=== PATIENT | female | born 1960 | race African-American/Black ===

== ENCOUNTER 2016-10-11 15:51 | Emergency (ER) | payer MEDICAID, OTHER ==
[~2016-10-11 15:51] MED LIST: METO25 PO
[2016-10-11 15:53] VITALS: BP 233/109; PULSE 58; RESP 14; TEMP 97.9; O2SAT 97
[2016-10-11 17:11] VITALS: BP 193/81; PULSE 94
[2016-10-11] MEDS ORDERED: AMLO5TAB2 PO ×2 (18:07→20:54)
[2016-10-11] MEDS ORDERED: GLIP10TA6 PO (18:07)
[2016-10-11] MEDS ORDERED: LISI-519 PO (18:07)
[2016-10-11] MEDS ORDERED: ENALAPRILAT 1.25 MG/ML VIAL IV PUSH ONE (18:15)
--- NOTE | 2016-10-11 18:22 | PD ---
HPI Chief Complaint: Cold / Flu Symptoms Time Seen by Provider: 18:16 Travel History International Travel<30 days: No Contact w/Intl Traveler<30days: No Traveled to known affect area: No History of Present Illness HPI Patient is a 55-year-old female presenting to emergency Department for evaluation of cough, headache, nasal congestion, chills. Patient states her symptoms started on Monday. She does not report any fevers but has not taken her temperature. She does report dull frontal headache. Patient reports a history of hypertension and diabetes. Patient is supposed to be on lisinopril and amlodipine as well as glipizide. Patient has not taken these medications since June. Her primary care provider is Dr. Walker. She denies any abdominal pain, shortness of breath, and nausea, diarrhea, vomiting. PFSH Past Medical History Asthma: No Autoimmune Disease: No Blood Disorders: No Heart Rhythm Problems: No Cancer: No High Cholesterol: No Chest Pain: No Congestive Heart Failure: No COPD: No Diabetes: Yes Patient Takes Glucophage: No Endocrine: No Gastrointestinal Disorders: Yes (HX OF GALL STONES) Genitourinary: No Heparin Induced Thrombocytopen: No Hypertension: Yes (noncompliant with medication) Implanted Vascular Access Dvce: No Musculoskeletal: No Neurologic: No Psychiatric: No Reproductive: No Respiratory: Yes (SARCOIDOSIS) Immunizations Current: Yes Myocardial Infarction: No Sleep Apnea: No Influenza Vaccination: Yes ?: Not : 5 Para: 5 Tubal Ligation: Yes Past Surgical History Cholecystectomy: Yes Other Surgery: No Social History Alcohol Use: No Tobacco Use: No Substance Use: No Allergies-Medications (Allergen,Severity, Reaction): Coded Allergies: No Known Allergies (Verified , 10/11/16) Reported Meds & Prescriptions Reported Meds & Active Scripts Active Reported Amlodipine (Amlodipine Besylate) 5 Mg Tab 5 Mg PO DAILY Lisinopril 5 Mg Tab 5 Mg PO DAILY Glipizide 10 Mg Tab 10 Mg PO DAILY Take 30 minutes before a meal Review of Systems Except as stated in HPI: all other systems reviewed are Neg General / Constitutional: Positive: Chills, No: Fever Eyes: No: Visual changes HENT: Positive: Headaches, Rhinitis, Congestion, No: Lightheadedness, Sore Throat, Ear Discharge, Earache Cardiovascular: No: Chest Pain or Discomfort Respiratory: Positive: Cough, Wheezing, No: Shortness of Breath Gastrointestinal: No: Nausea, Vomiting, Abdominal Pain Genitourinary: No: Dysuria Musculoskeletal: No: Myalgias Neurologic: Positive: Dizziness (yesterday) Physical Exam Narrative GENERAL: Obese, well-developed, alert female. Resting comfortably in no acute distress. SKIN: Warm and dry. HEAD: Atraumatic. Normocephalic. EYES: Pupils equal and round. No scleral icterus. No injection or drainage. ENT: No nasal bleeding or discharge. Mucous membranes pink and moist. NECK: Trachea midline. No JVD. CARDIOVASCULAR: Regular rate and rhythm. No murmur appreciated. RESPIRATORY: No accessory muscle use. Scattered expiratory wheezing noted. No increased work of breathing. GASTROINTESTINAL: Abdomen obese, soft, non-tender, nondistended. Hepatic and splenic margins not palpable. MUSCULOSKELETAL: No obvious deformities. No clubbing. No cyanosis. No edema. NEUROLOGICAL: Awake and alert. No obvious cranial nerve deficits. Motor grossly within normal limits. Normal speech. PSYCHIATRIC: Appropriate mood and affect; insight and judgment normal. Data Data Last Documented VS Vital Signs Date Time Temp Pulse Resp B/P Pulse Ox O2 Delivery O2 Flow Rate FiO2 10/11/16 20:47 189/84 10/11/16 19:38 78 16 98 Room Air 10/11/16 15:53 97.9 Orders Chest, Pa & Lat (10/11/16 ) Blood Glucose (10/11/16 18:14) Complete Blood Count With Diff (10/11/16 18:14) Comprehensive Metabolic Panel (10/11/16 18:14) Iv Access Insert/Monitor (10/11/16 18:14) Enalaprilat Inj (Vasotec Inj) (10/11/16 18:15) Metoprolol Tartrate Inj (Lopressor Inj) (10/11/16 19:15) Metoprolol Tartrate Inj (Lopressor Inj) (10/11/16 20:00) Labs Laboratory Tests Test 10/11/16 18:37 White Blood Count 4.2 TH/MM3 Red Blood Count 4.96 MIL/MM3 Hemoglobin 13.6 GM/DL Hematocrit 41.9 % Mean Corpuscular Volume 84.5 FL Mean Corpuscular Hemoglobin 27.4 PG Mean Corpuscular Hemoglobin 32.5 % Concent Red Cell Distribution Width 14.8 % Platelet Count 150 TH/MM3 Mean Platelet Volume 9.3 FL Neutrophils (%) (Auto) 42.9 % Lymphocytes (%) (Auto) 38.6 % Monocytes (%) (Auto) 15.8 % Eosinophils (%) (Auto) 2.0 % Basophils (%) (Auto) 0.7 % Neutrophils # (Auto) 1.8 TH/MM3 Lymphocytes # (Auto) 1.6 TH/MM3 Monocytes # (Auto) 0.7 TH/MM3 Eosinophils # (Auto) 0.1 TH/MM3 Basophils # (Auto) 0.0 TH/MM3 CBC Comment DIFF FINAL Differential Comment Sodium Level 139 MEQ/L Potassium Level 4.0 MEQ/L Chloride Level 106 MEQ/L Carbon Dioxide Level 26.3 MEQ/L Anion Gap 7 MEQ/L Blood Urea Nitrogen 13 MG/DL Creatinine 0.88 MG/DL Estimat Glomerular Filtration 81 ML/MIN Rate Random Glucose 97 MG/DL Calcium Level 8.4 MG/DL Total Bilirubin 0.2 MG/DL Aspartate Amino Transf 16 U/L (AST/SGOT) Alanine Aminotransferase 22 U/L (ALT/SGPT) Alkaline Phosphatase 100 U/L Total Protein 7.9 GM/DL Albumin 3.5 GM/DL MDM Medical Decision Making Medical Screen Exam Complete: Yes Emergency Medical Condition: Yes Interpretation(s) Vital Signs Date Time Temp Pulse Resp B/P Pulse Ox O2 Delivery O2 Flow Rate FiO2 10/11/16 17:11 94 193/81 10/11/16 15:53 97.9 58 14 233/109 97 Room Air Differential Diagnosis Uncontrolled hypertension versus viral upper respiratory infection versus hyperglycemia versus DKA versus other Narrative Course Patient is a 55-year-old female presented to emergency department initially for evaluation of cold symptoms that started on Monday. Patient was noted to have an elevated blood pressure with initial reading with systolic over 200. Patient reports noncompliance with her lisinopril and amlodipine. She states she has not taken them since June. Furthermore she stated that she is not taking the glipizide for her diabetes. Patient gave no reason for the noncompliant other than she didn't want take the medications. Chest x-ray ordered due to excretory wheezes noted on exam. We'll check basic labs in order to reinstate blood pressure medications. IV access initiated, enalapril 1 dose IV ordered. We'll continue to monitor. CBC and chemistry is unremarkable. Glucose is normal at 97. Patient received enalapril 1 dose, Lopressor 2 doses to gain control of her blood pressure. Patient was advised strongly to maintain compliance with antihypertensive medications to avoid stroke, heart attack. She was encouraged follow-up with her primary care provider. She is encouraged returns were department for any new or worsening symptoms. Patient verbalized understanding of instructions as well as education. Patient is stable for discharge. Diagnosis Primary Impression: Viral URI Additional Impression: Hypertension Qualified Code: I10 - Essential hypertension Referrals: Claudio Walker MD 1 day Patient Instructions: General Instructions, Hypertension (ED), Type 2 Diabetes in Adults (ED), Upper Respiratory Infection (ED) Additional Instructions: Follow-up with Dr. Walker in 1-2 days Take your blood pressure medications as prescribed, do not skip doses to avoid rebound hypertension Return to emergency department for any new or worsening symptoms Med/Other Pt SpecificInfo: Prescription(s) given Scripts Amlodipine 5 Mg Tab5 Mg PO DAILY #30 TAB Ref 0 Prov:Elsa Santos 10/11/16 Lisinopril 20 Mg Tab20 Mg PO DAILY #30 TAB Ref 0 Prov:Elsa Santos 10/11/16 Disposition: 01 DISCHARGE HOME Condition: Stable Elsa Santos Oct 11, 2016 18:21
--- NOTE | 2016-10-11 18:59 | RADRPT ---
EXAM DATE/TIME: 10/11/2016 18:34 [facility] COMPARISON: CHEST PA & LAT, July 06, 2009, 14:29. INDICATIONS : Shortness of breath and fever for the past few days. Wheezing today. MEDICAL HISTORY : Hypertension. Diabetes mellitus type II. SURGICAL HISTORY : Cholecystectomy. Bronchoscopy. ENCOUNTER: Initial ACUITY: 3 days PAIN SCORE: 0/10 LOCATION: Bilateral chest FINDINGS: PA and lateral views of the chest demonstrate the lungs to be symmetrically aerated without evidence of mass, infiltrate or effusion. The cardiomediastinal contours are unremarkable. Spurs are seen in the thoracic spine. Surgical clips are seen in the upper abdomen CONCLUSION: No acute disease. Claudio Pak MD on October 11, 2016 at 18:57 Board Certified Radiologist. This report was verified electronically.
[2016-10-11 19:14] LABS: AUTOMATED NEUTROPHIL # 1.8 TH/MM3 (1.8-7.7); BASOPHIL % 0.7 % (0.0-2.0); EOSINOPHIL # 0.1 TH/MM3 (0-0.4); HEMATOCRIT 41.9 % (35.0-46.0); HEMO FLAGS DIFF FINAL; LYMPH % 38.6 % (9.0-44.0); LYMPHOCYTE # 1.6 TH/MM3 (1.0-4.8); MEAN CELL VOLUME 84.5 FL (80.0-100.0); MEAN CORPUSCULAR HEMOGLOBIN 27.4 PG (27.0-34.0); MEAN CORPUSCULAR HGB CONC 32.5 % (32.0-36.0); MONO % 15.8 % (0.0-8.0); NEUT % 42.9 % (16.0-70.0); PLATELET COUNT 150 TH/MM3 (150-450); RED BLOOD COUNT 4.96 MIL/MM3 (4.00-5.30); RED CELL DISTRIBUTION WIDTH 14.8 % (11.6-17.2); WHITE BLOOD COUNT 4.2 TH/MM3 (4.0-11.0)
[2016-10-11] MEDS ORDERED: METOPROLOL TARTRATE 5 MG/5 ML VIAL IV PUSH ONE ×2 (19:15→20:00)
[2016-10-11 19:38] VITALS: BP 217/96; PULSE 78; RESP 16; O2SAT 98
[2016-10-11 19:41] LABS: ANION GAP 7 MEQ/L (5-15); AST (GOT) 16 U/L (15-37); BICARBONATE 26.3 MEQ/L (21.0-32.0); BLOOD UREA NITROGEN 13 MG/DL (7-18); CHLORIDE 106 MEQ/L (98-107); GLOMERULAR FILTRATION RATE 81 ML/MIN (>89); SODIUM (NA) 139 MEQ/L (136-145)
[2016-10-11 19:52] LABS: ALKALINE PHOSPHATASE 100 U/L (45-117); ALT (GPT) 22 U/L (10-53); TOTAL BILIRUBIN ADULT 0.2 MG/DL (0.2-1.0)
[2016-10-11 20:47] VITALS: BP 189/84
[2016-10-11] MEDS ORDERED: LISI-515 PO (20:54)
== END 2016-10-11 21:13 | disposition home or self-care (01) ==
LOC: NEPC 15:51
DX: J06.9 Acute upper respiratory infection, unspecified (principal); I10 Essential (primary) hypertension; E11.9 Type 2 diabetes mellitus without complications
CPT/HCPCS: 71020; 80053; 85025; 96374; 96375; 96376

== ENCOUNTER 2017-03-26 19:31 | Emergency (ER) | payer MEDICAID ==
[~2017-03-26] VITALS: Ht 165.1 cm; Wt 117.0 kg
[~2017-03-26 19:31] MED LIST changes: +AMLO5TAB2 PO; +GLIP10TA6 PO; +LISI-515 PO; +LISI-519 PO; -METO25 PO
[2017-03-26 19:32] VITALS: BP 237/104; PULSE 89; RESP 18; TEMP 98.6; O2SAT 89
--- NOTE | 2017-03-26 20:16 | PD ---
HPI Chief Complaint: Pain: Acute or Chronic Time Seen by Provider: 19:46 Travel History International Travel<30 days: No Contact w/Intl Traveler<30days: No Traveled to known affect area: No History of Present Illness HPI 56 years old female complains of right upper quadrant abdominal pain and left shoulder and left-sided neck pain. Patient states that she has persistent left- sided neck pain and left shoulder pain for the past several months. Patient states the pain is worse with movement of the neck and the left shoulder joint. Patient denies any chest pain. Patient denies any shortness of breath. Patient denies any focal weakness or numbness of the upper extremity. Patient denies any neck injury. Patient states that she started having right upper quadrant abdominal pain since last night. Patient states that the pain radiated to the right flank area. Patient denies any nausea vomiting diarrhea. Patient states that the pain cramping pain constant pain. Patient denies any dysuria or frequency. Patient denies any vaginal discharge or bleeding. Patient status post cholecystectomy in the past. Patient has history hypertension, diabetes. On a scale of 1-10 the pain is a 6. PFSH Past Medical History Asthma: No Autoimmune Disease: No Blood Disorders: No Heart Rhythm Problems: No Cancer: No Cardiovascular Problems: Yes High Cholesterol: No Chest Pain: No Congestive Heart Failure: No COPD: No Diabetes: Yes (takes glipizide) Endocrine: No Gastrointestinal Disorders: Yes (HX OF GALL STONES) Genitourinary: No Heparin Induced Thrombocytopen: No Hypertension: Yes (noncompliant with medication) Implanted Vascular Access Dvce: No Musculoskeletal: No Neurologic: No Psychiatric: No Reproductive: No Respiratory: Yes (SARCOIDOSIS) Immunizations Current: Yes Myocardial Infarction: No Sleep Apnea: No ?: Not : 5 Para: 5 Tubal Ligation: Yes Past Surgical History Cholecystectomy: Yes Other Surgery: No Social History Alcohol Use: No Tobacco Use: No Substance Use: No Allergies-Medications (Allergen,Severity, Reaction): Coded Allergies: No Known Allergies (Verified , 10/11/16) Reported Meds & Prescriptions Reported Meds & Active Scripts Active Amlodipine (Amlodipine Besylate) 5 Mg Tab 5 Mg PO DAILY Lisinopril 20 Mg Tab 20 Mg PO DAILY Reported Glipizide 10 Mg Tab 10 Mg PO DAILY Take 30 minutes before a meal Review of Systems General / Constitutional: No: Fever Eyes: No: Visual changes HENT: Positive: Neck Pain, No: Headaches Cardiovascular: No: Chest Pain or Discomfort Respiratory: No: Shortness of Breath Gastrointestinal: Positive: Abdominal Pain Genitourinary: No: Dysuria Musculoskeletal: Positive: Pain Skin: No Rash Neurologic: No: Weakness Psychiatric: No: Depression Endocrine: No: Polydipsia Hematologic/Lymphatic: No: Easy Bruising Physical Exam Narrative GENERAL: Well-nourished, well-developed patient. SKIN: Focused skin assessment warm/dry. HEAD: Normocephalic. EYES: No scleral icterus. No injection or drainage. NECK: Supple, trachea midline. No JVD or lymphadenopathy. Mild tenderness on palpation left paraspinal areas cervical spine. No midline tenderness. No meningismus. CARDIOVASCULAR: Regular rate and rhythm without murmurs, gallops, or rubs. RESPIRATORY: Breath sounds equal bilaterally. No accessory muscle use. GASTROINTESTINAL: Abdomen soft, nondistended. Mild tenderness on palpation right upper quadrant of the abdomen. No rebound tenderness. No mass. MUSCULOSKELETAL: No cyanosis, or edema. Mild diffuse tenderness over left shoulder pad and superior aspect left shoulder joint. Full range of motion left shoulder. BACK: Nontender without obvious deformity. No CVA tenderness. Neurologic exam normal. Data Data Last Documented VS Vital Signs Date Time Temp Pulse Resp B/P Pulse Ox O2 Delivery O2 Flow Rate FiO2 03/26/17 22:48 82 18 175/80 97 Room Air 03/26/17 19:32 98.6 Orders Electrocardiogram (03/26/17 19:55) Complete Blood Count With Diff (03/26/17 19:55) Comprehensive Metabolic Panel (03/26/17 19:55) Creatine Kinase (Cpk) (03/26/17 19:55) Troponin I (03/26/17 19:55) Prothrombin Time / Inr (Pt) (03/26/17 19:55) Act Partial Throm Time (Ptt) (03/26/17 19:55) Lipase (03/26/17 19:55) Urinalysis - C+S If Indicated (03/26/17 19:55) Chest, Single Ap (03/26/17 19:55) Ct Abd/Pel W Iv Contrast(Rout) (03/26/17 19:55) Iv Access Insert/Monitor (03/26/17 19:55) Ecg Monitoring (03/26/17 19:55) Oximetry (03/26/17 19:55) Shoulder, Limited(2vws) (03/26/17 20:01) Spine, Cervical - Ltd (Ap&Lat) (03/26/17 20:01) Hydralazine Inj (Apresoline Inj) (03/26/17 20:45) Iohexol 350 Inj (Omnipaque 350 Inj) (03/26/17 22:21) Labs Laboratory Tests Test 03/26/17 20:40 White Blood Count 7.5 TH/MM3 Red Blood Count 4.84 MIL/MM3 Hemoglobin 13.3 GM/DL Hematocrit 40.9 % Mean Corpuscular Volume 84.6 FL Mean Corpuscular Hemoglobin 27.6 PG Mean Corpuscular Hemoglobin 32.6 % Concent Red Cell Distribution Width 14.5 % Platelet Count 198 TH/MM3 Mean Platelet Volume 8.8 FL Neutrophils (%) (Auto) 50.5 % Lymphocytes (%) (Auto) 39.4 % Monocytes (%) (Auto) 6.9 % Eosinophils (%) (Auto) 2.3 % Basophils (%) (Auto) 0.9 % Neutrophils # (Auto) 3.8 TH/MM3 Lymphocytes # (Auto) 2.9 TH/MM3 Monocytes # (Auto) 0.5 TH/MM3 Eosinophils # (Auto) 0.2 TH/MM3 Basophils # (Auto) 0.1 TH/MM3 CBC Comment DIFF FINAL Differential Comment Prothrombin Time 10.4 SEC Prothromb Time International 0.9 RATIO Ratio Activated Partial 25.1 SEC Thromboplast Time Sodium Level 142 MEQ/L Potassium Level 3.8 MEQ/L Chloride Level 109 MEQ/L Carbon Dioxide Level 25.2 MEQ/L Anion Gap 8 MEQ/L Blood Urea Nitrogen 15 MG/DL Creatinine 0.76 MG/DL Estimat Glomerular Filtration 95 ML/MIN Rate Random Glucose 117 MG/DL Calcium Level 8.9 MG/DL Total Bilirubin 0.2 MG/DL Aspartate Amino Transf 11 U/L (AST/SGOT) Alanine Aminotransferase 19 U/L (ALT/SGPT) Alkaline Phosphatase 114 U/L Total Creatine Kinase 99 U/L Troponin I LESS THAN 0.02 NG/ML Total Protein 7.8 GM/DL Albumin 3.4 GM/DL Lipase 203 U/L MDM Medical Decision Making Medical Screen Exam Complete: Yes Emergency Medical Condition: Yes Interpretation(s) 21:59 PM. CBC within normal limits. CMP within normal limit. Cardiac enzymes are normal. Last Impressions Shoulder X-Ray 03/26/172000 Signed Impressions: Service Date/Time: Sunday, March 26, 2017 20:26 - CONCLUSION: Negative exam. Demarco White MD Cervical Spine X-Ray 03/26/172000 Signed Impressions: Service Date/Time: Sunday, March 26, 2017 20:17 - CONCLUSION: No evidence of compression deformity or spondylolisthesis. Demarco White MD Chest X-Ray 03/26/171954 Signed Impressions: Service Date/Time: Sunday, March 26, 2017 20:15 - CONCLUSION: The lungs are clear. Demarco White MD 22:[address] scan abdomen and pelvis shows uterine fibroids, right lower quadrant hernia. No evidence of strangulation. Differential Diagnosis Differential diagnosis including musculoskeletal, angina, WA, PE, pneumothorax, gastritis, PUD, colitis, UTI, pyelonephritis, nephrolithiasis. Narrative Course 56 years old female with left-sided neck pain, left shoulder pain, right upper quadrant abdominal pain. Hydralazine 10 mg IV given. The blood pressure came under control. Diagnosis Primary Impression: Abdominal pain Qualified Code: R10.11 - Right upper quadrant abdominal pain Additional Impressions: Left shoulder strain Qualified Code: S46.912A - Left shoulder strain, initial encounter Uncontrolled hypertension Patient Instructions: General Instructions Additional Instructions: Take medications as directed. Follow-up with personal physician and GI specialist. Return if worse. Med/Other Pt SpecificInfo: Prescription(s) given Scripts Methocarbamol (Robaxin)750 Mg Fwo212 Mg PO QID #40 TAB Prov:Samir Ch MD 03/26/17 Pantoprazole (Protonix)20 Mg Tab20 Mg PO DAILY #30 TAB Prov:Samir Ch MD 03/26/17 Amlodipine 5 Mg Tab5 Mg PO DAILY #30 TAB Ref 0 Prov:Samir Ch MD 03/26/17 Lisinopril 20 Mg Tab20 Mg PO DAILY #30 TAB Ref 0 Prov:Samir Ch MD 03/26/17 Glipizide 10 Mg Tab10 Mg PO DAILY #30 TAB Ref 0 Take 30 minutes before a meal Prov:Samir Ch MD 03/26/17 Disposition: 01 DISCHARGE HOME Condition: Stable Samir Ch MD Mar 26, 2017 20:16
[2017-03-26 20:36] VITALS: BP 222/116; PULSE 75; RESP 14; O2SAT 100
[2017-03-26] MEDS ORDERED: hydrALAZINE HCL 20 MG/ML VIAL IV PUSH ONE (20:45)
--- NOTE | 2017-03-26 20:54 | RADRPT ---
EXAM DATE/TIME: 03/26/2017 20:15 [facility] COMPARISON: No previous studies available for comparison. INDICATIONS : Shortness of breath. Palpitations for 1 month. MEDICAL HISTORY : Hypertension. Diabetes mellitus type II. SURGICAL HISTORY : Cholecystectomy. Bronchoscopy ENCOUNTER: Initial ACUITY: 1 month PAIN SCORE: 5/10 LOCATION: Bilateral chest FINDINGS: A single view of the chest demonstrates the lungs to be symmetrically aerated without evidence of mas s, infiltrate or effusion. The cardiomediastinal contours are unremarkable. Osseous structures are intact. CONCLUSION: The lungs are clear. Demarco White MD on March 26, 2017 at 20:52 Board Certified Radiologist. This report was verified electronically.
[2017-03-26 20:59] VITALS: BP 192/92; PULSE 72
--- NOTE | 2017-03-26 21:07 | RADRPT ---
EXAM DATE/TIME: 03/26/2017 20:17 [facility] COMPARISON: No previous studies available for comparison. INDICATIONS : Neck pain for 1 month. MEDICAL HISTORY : Hypertension. Diabetes mellitus type I. SURGICAL HISTORY : ENCOUNTER: Initial ACUITY: 1 month PAIN SCORE: 5/10 LOCATION: Left neck FINDINGS: There is straightening of the cervical lordosis. No compression deformity seen. Nonbridging anterio r paravertebral ossification is present from C3-C7. No significant posterior osteophytes. The atlan toaxial articulation is intact. The heterotopic ossification adjacent to the tip of the C7 spinous p rocess suggests old Ryan shovelers injury. CONCLUSION: No evidence of compression deformity or spondylolisthesis. Demarco White MD on March 26, 2017 at 21:05 Board Certified Radiologist. This report was verified electronically.
--- NOTE | 2017-03-26 21:13 | RADRPT ---
EXAM DATE/TIME: 03/26/2017 20:26 [facility] COMPARISON: No previous studies available for comparison. INDICATIONS : Shoulder pain for 1 month. MEDICAL HISTORY : Hypertension. Diabetes mellitus type I. SURGICAL HISTORY : ENCOUNTER: Initial ACUITY: 1 month PAIN SCORE: 5/10 LOCATION: Left proximal collarbone FINDINGS: Two view examination of the left shoulder demonstrates no evidence of fracture or dislocation. The g lenohumeral and acromioclavicular joints are maintained. Bony mineralization is normal. CONCLUSION: Negative exam. Demarco White MD on March 26, 2017 at 21:11 Board Certified Radiologist. This report was verified electronically.
[2017-03-26 21:15] LABS: AUTOMATED NEUTROPHIL # 3.8 TH/MM3 (1.8-7.7); BASOPHIL # 0.1 TH/MM3 (0-0.2); BASOPHIL % 0.9 % (0.0-2.0); EOSINOPHIL # 0.2 TH/MM3 (0-0.4); EOSINOPHIL % 2.3 % (0.0-4.0); HEMATOCRIT 40.9 % (35.0-46.0); HEMO FLAGS DIFF FINAL; LYMPH % 39.4 % (9.0-44.0); LYMPHOCYTE # 2.9 TH/MM3 (1.0-4.8); MEAN CELL VOLUME 84.6 FL (80.0-100.0); MEAN CORPUSCULAR HEMOGLOBIN 27.6 PG (27.0-34.0); MEAN CORPUSCULAR HGB CONC 32.6 % (32.0-36.0); MONO % 6.9 % (0.0-8.0); NEUT % 50.5 % (16.0-70.0); PLATELET COUNT 198 TH/MM3 (150-450); RED BLOOD COUNT 4.84 MIL/MM3 (4.00-5.30); RED CELL DISTRIBUTION WIDTH 14.5 % (11.6-17.2); WHITE BLOOD COUNT 7.5 TH/MM3 (4.0-11.0)
[2017-03-26 21:21] LABS: APTT (PATIENT) 25.1 SEC (24.3-30.1); INTERNATIONAL NORMALIZED RATIO 0.9 RATIO; PROTHROMBIN TIME - PATIENT 10.4 SEC (9.8-11.6)
[2017-03-26 21:23] LABS: ANION GAP 8 MEQ/L (5-15); AST (GOT) 11 U/L (15-37); BICARBONATE 25.2 MEQ/L (21.0-32.0); BLOOD UREA NITROGEN 15 MG/DL (7-18); CHLORIDE 109 MEQ/L (98-107); GLOMERULAR FILTRATION RATE 95 ML/MIN (>89); POTASSIUM 3.8 MEQ/L (3.5-5.1); SODIUM (NA) 142 MEQ/L (136-145)
[2017-03-26 21:24] LABS: ALT (GPT) 19 U/L (10-53)
[2017-03-26 21:27] LABS: ALKALINE PHOSPHATASE 114 U/L (45-117); TOTAL BILIRUBIN ADULT 0.2 MG/DL (0.2-1.0)
[2017-03-26 21:29] LABS: CREATINE KINASE 99 U/L (26-192)
[2017-03-26] MEDS ORDERED: IOHEXOL 350 MG/ML 10 ML VIAL (for RAD DIAG) IV ONE (22:21)
--- NOTE | 2017-03-26 22:45 | RADRPT ---
EXAM DATE/TIME: 03/26/2017 22:17 [facility] COMPARISON: No previous studies available for comparison. INDICATIONS : Right sided abdominal pain. IV CONTRAST: 96 cc Omnipaque 350 (iohexol) IV ORAL CONTRAST: No oral contrast ingested. RADIATION DOSE: 27.10 CTDIvol (mGy) MEDICAL HISTORY : Cardiovascular disease. Hypertension. Sarcoidosis SURGICAL HISTORY : Tubal ligation. Cholecystectomy. ENCOUNTER: Initial ACUITY: 1 day PAIN SCALE: 6/10 LOCATION: Right upper quadrant abdomen TECHNIQUE: Volumetric scanning of the abdomen and pelvis was performed. Using automated exposure control and ad justment of the mA and/or kV according to patient size, radiation dose was kept as low as reasonably achievable to obtain optimal diagnostic quality images. DICOM format image data is available electro nically for review and comparison. FINDINGS: LOWER LUNGS: Minimal linear scarring in the medial right costophrenic angle. No evidence of pleural effusion. LIVER: Mild steatosis of the liver. No focal lesions seen. No biliary ductal dilatation. Cholecystectomy. SPLEEN: Normal size without lesion. PANCREAS: Within normal limits. KIDNEYS: Normal in size and shape. There is no mass, stone or hydronephrosis. ADRENAL GLANDS: Within normal limits. VASCULAR: There is no aortic aneurysm. BOWEL/MESENTERY: No dilated loops of small or large bowel. The appendix is identified in the right lower quadrant has a normal configuration. ABDOMINAL WALL: Spigelian hernia lateral lower right abdominal wall with some protrusion of the right colon. The dis continuity measures 4.5 cm in width. Small umbilical hernia containing fat. RETROPERITONEUM: There is no lymphadenopathy. BLADDER: No wall thickening or mass. REPRODUCTIVE: Several calcified uterine fibroids involving the fundus and body, measuring up to 2.7 cm in dimension . No evidence of free fluid. Low density areas in the adnexa could represent ovarian cysts. INGUINAL: There is no lymphadenopathy or hernia. MUSCULOSKELETAL: Degenerative changes in the posterior elements of the lumbar spine and moderate lumbar scoliosis conv ex towards the left. CONCLUSION: 1. Multiple calcified uterine fibroids. 2. Possible lateral ovarian cysts. No evidence of free fluid. 3. Right lower quadrant spiculated hernia with a portion of the right colon protruding into the herni a. No evidence of strangulation. Demarco White MD on March 26, 2017 at 22:37 Board Certified Radiologist. This report was verified electronically.
[2017-03-26 22:48] VITALS: BP 175/80; PULSE 82; RESP 18; O2SAT 97
[2017-03-26] MEDS ORDERED: AMLO5TAB2 PO (22:57)
[2017-03-26] MEDS ORDERED: GLIP10TA6 PO (22:57)
[2017-03-26] MEDS ORDERED: LISI-515 PO (22:57)
[2017-03-26] MEDS ORDERED: ROBA750T PO (22:57)
[2017-03-26] MEDS ORDERED: PANT20 PO (22:57)
[2017-03-26 23:49] LABS: BACTERIA, URINE OCC /hpf; BLOOD, URINE NEG (NEG); COMMENT (UR) CULT NOT INDICATED; CULTURE IF INDICATED CULT NOT INDICATED; GLUCOSE,URINE NEG (NEG); KETONE, URINE NEG (NEG); MUCUS URINE FEW /lpf (OCC); NITRITE,URINE NEG (NEG); PH, URINE 6.5 (5.0-8.5); SQUAMOUS EPITHELIAL CELL URINE 1 /hpf (0-5); URINE COLOR LIGHT-YELLOW (YELLW/STRAW)
--- NOTE | 2017-03-27 14:14 | EKG ---
Date Performed: 03/26/2017 Time Performed: 20:50:41 PTAGE: 56 years EKG: Sinus rhythm NORMAL ECG Compared to prior tracing no significant change PREVIOUS TRACING : 12/15/2010 11.53 DOCTOR: Maurice Mansfield Interpretating Date/Time 03/27/2017 14:11:43
== END 2017-03-26 23:39 | disposition home or self-care (01) ==
LOC: NEPC 19:31
DX: R10.11 Right upper quadrant pain (principal); S46.912A Strain of unspecified muscle, fascia and tendon at shoulder and upper arm level, left arm, initial encounter; I10 Essential (primary) hypertension; E11.9 Type 2 diabetes mellitus without complications; M54.2 Cervicalgia; X58.XXXA Exposure to other specified factors, initial encounter; Z79.84 Long term (current) use of oral hypoglycemic drugs; Z79.899 Other long term (current) drug therapy
CPT/HCPCS: 71010; 72040; 73030; 74177; 80053; 81001; 82550; 83690; 84484; 85025; 85610; 85730; 93005; 96374; 99285; J0360; Q9967